=== PATIENT | female | born 1970 | race Caucasian/White ===

== ENCOUNTER → 2019-04-12 | Outpatient (CLI) | payer OTHER ==
--- NOTE | 2019-04-12 18:30 | Diagnostic Imaging Report ---
EXAMINATION: Left shoulder radiographs, 2 views. COMPARISON: None. HISTORY: 49-year-old female, left shoulder pain for two months. FINDINGS: The acromioclavicular joint is normally aligned. There are no prominent acromioclavicular degenerative changes. The humeral head is normally positioned relative to the glenoid. The glenohumeral joint space appears well maintained. There is no prominent osteophyte formation. There is no identified subchondral cystic change. There is no identified acute fracture. There is no radiographically apparent bone lesion. There are median sternotomy wires. IMPRESSION: Unremarkable radiographic appearance of the left shoulder. Dictated by: Dictated on workstation # [id number]
== END ==
LOC: RAD FS 13:50
PROVIDERS: ATTEND Family Medicine
DX: M25.512 Pain in left shoulder (principal)
CPT/HCPCS: 73030